=== PATIENT | male | born 1970 | race Caucasian/White ===

== ENCOUNTER 2017-12-21 22:21 | Observation (INO) ==
[2017-12-21] MEDS ORDERED: Sodium Chlor 0.9% Inj 500 ML IV.SIG ONE (22:33)
--- NOTE | 2017-12-21 22:54 | XR ---
EXAM DATE: 12/21/2017 10:49 PM EST AGE/SEX: 47 years / Male INDICATIONS: Syncopal episode today. CLINICAL DATA: This is the patient's initial encounter. Patient reports that signs and symptoms have been present for 1 day and indicates a pain score of 0/10. MEDICAL/SURGICAL HISTORY: None. None. COMPARISON: [facility], CHEST SINGLE AP, 12/04/2014. . FINDINGS: A single AP view of the chest demonstrates the lungs to be symmetrically aerated without evidence of mass, infiltrate or effusion. The cardiomediastinal contours are unremarkable. Osseous structures a re intact. CONCLUSION: No acute cardiopulmonary disease demonstrated. Electronically signed by: Eleno Romo MD 12/21/2017 10:52 PM EST
--- NOTE | 2017-12-21 22:55 | ED ---
HPI General Chief complaint: Syncope Stated complaint: poss syncope/evac Time Seen by Provider: 12/21/17 22:31 Source: patient Mode of arrival: EMS Limitations: no limitations History of Present Illness HPI narrative: The patient is a 47 year old male who presents to the [facility] emergency department with a history of syncope prior to arrival. The patient reports that he was pushing his granddaughter at the local fair when he began to have lightheaded sensation, a sensation of his heart racing, diaphoresis, nausea, and shortness of breath. He denies having any chest pain or chest pressure. The patient reports that he collapsed to the ground, however he did not completely lose consciousness. The patient was brought in by ambulance services. They report that fire rescue stated that his blood pressure was low, however they do not know what the blood pressure was. The patient had IV access obtained prior to arrival and was given 1 L of normal saline. The patient's blood pressure on arrival was 138 systolic. The patient' s blood sugar was reportedly 175. The patient denies having any medical problems except for acid reflux and obesity. He reports that he actually recently had a stress test done in October 2017 that was reportedly unremarkable. He reports that he last ate a meal at approximately 4 PM. He reports that he has been drinking fluids. He denies having any vomiting or diarrhea. On review of systems otherwise, the patient denies having any known recent fevers, cough, congestion, neck pain, abdominal pain, urinary symptoms, or other neurologic symptoms. The patient reports that all throughout the day today he did experience generalized weakness. He reports that he last moved his bowels earlier today. He denies having any blood in his stool or black or tarry stools. Related Data Home Medications Medication Instructions Recorded Confirmed omeprazole 20 mg PO DAILY 12/22/17 12/22/17 Allergies Allergy/AdvReac Type Severity Reaction Status Date / Time No Known Allergies Allergy Uncoded 12/04/14 18:48 Review of Systems ROS: all other systems reviewed are negative [facility] Medical History Medical History GERD (gastroesophageal reflux disease) (Acute) History of varicose veins (Acute) Social History Social History Second Hand Smoke Exposure: No Smoking Status: Never smoker How Often Do You Have a Drink Containing Alcohol: Never Exam Const General: cooperative, well developed, diaphoretic and ill appearing Nutritional Appearance: obese Orientation: alert, awake and oriented x3 HENMT Head: normocephalic and atraumatic Nose: no nasal discharge and no epistaxis Mouth: moist mucous membranes Eyes Sclera: normal sclerae Pupils: PERRL Neck Neck: trachea midline and no JVD Resp Effort & Inspection: no use of accessory muscles Auscultation: clear to auscultation bilaterally Cardio Rate: regular rate Rhythm: regular rhythm Heart Sounds: no murmurs GI Inspection: non-distended Palpation: soft, no hepatosplenomegaly and nontender Back/Spine/Pelvis Back: no CVA tenderness Skin General: other (diaphoretic on arrival) Neuro General: alert, awake and oriented x3 Cranial Nerves: CN's II-XI intact bilaterally Speech: speech normal Motor: strength 5/5 throughout, no movement abnormalities noted and tremor ( Mildly tremulous in bilateral upper extremities.) Sensory Exam: no sensory deficits noted Extrem General: normal to inspection (2+ pulses in all 4 extremities.), no calf tenderness, no clubbing, no cyanosis and edema (Trace pedal edema.) Laterality: bilaterally Psych Mood: congruent mood Affect: normal affect Judgment: judgment good Course Reevaluation(s) Reevaluation #1: The patient on reevaluation is resting comfortably. Patient is no longer tremulous and is no longer diaphoretic. Consultations Consultation #1: The patient's case including history, pertinent physical examination findings, and laboratory studies were discussed with Dr. Wills. It was [facility] Initial Documented Vital Signs Temperature 98.4 F 12/21/17 22:28 Pulse Rate 86 12/21/17 22:28 Respiratory Rate 18 12/21/17 22:28 Blood Pressure 142/65 H 12/21/17 22:28 Pulse Oximetry 98 12/21/17 22:28 Last Documented Vital Signs Temperature 98.4 F 12/21/17 22:28 Pulse Rate 86 12/21/17 22:28 Respiratory Rate 18 12/21/17 22:28 Blood Pressure 142/65 H 12/21/17 22:28 Pulse Oximetry 98 12/21/17 22:28 Medical Decision Making MDM Narrative Medical decision making narrative: During the course of the patient's emergency department visit, the patient's history, examination, and differential diagnosis were reviewed with the patient. The patient was placed on a rn cardiac with oximetry and frequent blood pressure monitoring. The patient had IV access obtained and blood work sent for analysis. A diagnostic evaluation was started regarding the patient's syncope. The patient was initially provided normal saline a 500 mL bolus x1. Diagnostic testing is remarkable for a white count of 12.4, hemoglobin 13.7, platelets 203 with a neutrophil percent of 79.2. PT 11, PTT 24.4, d-dimer elevated at 1.85, CTA to rule out PE was ordered. CMP is remarkable for chloride of 110, anion gap 4, BUN 19, glucose 107, calcium 8.2, initial set of cardiac enzymes are within normal limits, lipase 52, BNP is 7. Chest x-ray showed no acute abnormality, CT scan of the brain showed no acute abnormality of the chest reveals no evidence of pulmonary embolism. The patient will be admitted to the hospital for syncope. The patient's results were discussed with the patient, including the plan of care. I explained that further testing and/ or monitoring is indicated based on the patient's history, examination, and/ or laboratory findings. Therefore, I recommended admission for additional evaluation. The patient expressed understanding and was agreeable with this plan. The patient was admitted to the hospital in stable condition and sent to a bed under the care of the [facility] service. Medical Screen Exam Complete: Yes Emergency Medical Condition: Yes Differential Diagnosis Differential Diagnosis: Vasovagal syncope, versus orthostasis, versus cardiac arrhythmia, versus acute coronary syndrome, versus dehydration Medical Records Medical records reviewed: Yes I reviewed the patient's medical records. Lab Data Lab results reviewed: Yes I reviewed the patient's lab results. Result diagrams: 12/21/17 22:30 12/21/17 22:30 Lab Results 12/21/17 12/21/17 12/21/17 Range/Units 22:30 22:30 22:30 WBC 12.4 H (4.0-11.0) th/mm3 RBC 4.72 (4.50-5.90) mil/mm3 Hgb 13.7 (13.0-17.0) gm/dL Hct 40.4 (39.0-51.0) % MCV 85.5 (80.0-100.0) fL MCH 29.1 (27.0-34.0) pg MCHC 34.0 (32.0-36.0) % RDW 13.6 (11.6-17.2) % Plt Count 203 (150-450) th/mm3 MPV 9.6 (7.0-11.0) fL Neut % (Auto) 79.2 H (16.0-70.0) % Lymph % (Auto) 13.3 (9.0-44.0) % [place] % (Auto) 5.9 (0.0-8.0) % Eos % (Auto) 0.9 (0.0-4.0) % Baso % (Auto) 0.7 (0.0-2.0) % Neut # (Auto) 9.8 H (1.8-7.7) th/mm3 Lymph # (Auto) 1.6 (1.0-4.8) th/mm3 [place] # (Auto) 0.7 (0.0-0.9) th/mm3 Eos # (Auto) 0.1 (0.0-0.4) th/mm3 Baso # (Auto) 0.1 (0.0-0.2) th/mm3 WBC Differential . Differential Comment Auto diff final PT 11.0 (9.8-11.6) sec INR 1.1 Ratio APTT 24.4 (23.4-31.7) sec D-Dimer Quant (PE/DVT) 1.85 H (0.00-0.50) mg/L FEU Sodium 143 (136-145) meq/L Potassium 3.8 (3.5-5.1) meq/L Chloride 110 H (98-107) meq/L Carbon Dioxide 28.8 (21.0-32.0) meq/L Anion Gap 4 L (5-15) meq/L BUN 19 H (7-18) mg/dL Creatinine 1.17 (0.60-1.30) mg/dL Estimated GFR 67 L (>89) mL/min Random Glucose 107 H (74-106) mg/dL Calcium 8.2 L (8.5-10.1) mg/dL Magnesium 1.8 (1.5-2.5) mg/dL Total Bilirubin 0.4 (0.2-1.0) mg/dL AST 17 (15-37) U/L ALT 30 (12-78) U/L Alkaline Phosphatase 78 (45-117) U/L Total Creatine Kinase 120 (39-308) U/L CK-MB (CK-2) 1.8 (0.5-3.6) ng/mL Troponin I Less than 0.02 L (0.02-0.05) ng/mL B-Natriuretic Peptide (0-100) pg/mL Total Protein 7.5 (6.4-8.2) g/dL Albumin 3.3 L (3.4-5.0) g/dL Lipase 52 L (73-393) U/L 12/21/17 Range/Units 22:30 WBC (4.0-11.0) th/mm3 RBC (4.50-5.90) mil/mm3 Hgb (13.0-17.0) gm/dL Hct (39.0-51.0) % MCV (80.0-100.0) fL MCH (27.0-34.0) pg MCHC (32.0-36.0) % RDW (11.6-17.2) % Plt Count (150-450) th/mm3 MPV (7.0-11.0) fL Neut % (Auto) (16.0-70.0) % Lymph % (Auto) (9.0-44.0) % [place] % (Auto) (0.0-8.0) % Eos % (Auto) (0.0-4.0) % Baso % (Auto) (0.0-2.0) % Neut # (Auto) (1.8-7.7) th/mm3 Lymph # (Auto) (1.0-4.8) th/mm3 [place] # (Auto) (0.0-0.9) th/mm3 Eos # (Auto) (0.0-0.4) th/mm3 Baso # (Auto) (0.0-0.2) th/mm3 WBC Differential Differential Comment PT (9.8-11.6) sec INR Ratio APTT (23.4-31.7) sec D-Dimer Quant (PE/DVT) (0.00-0.50) mg/L FEU Sodium (136-145) meq/L Potassium (3.5-5.1) meq/L Chloride (98-107) meq/L Carbon Dioxide (21.0-32.0) meq/L Anion Gap (5-15) meq/L BUN (7-18) mg/dL Creatinine (0.60-1.30) mg/dL Estimated GFR (>89) mL/min Random Glucose (74-106) mg/dL Calcium (8.5-10.1) mg/dL Magnesium (1.5-2.5) mg/dL Total Bilirubin (0.2-1.0) mg/dL AST (15-37) U/L ALT (12-78) U/L Alkaline Phosphatase (45-117) U/L Total Creatine Kinase (39-308) U/L CK-MB (CK-2) (0.5-3.6) ng/mL Troponin I (0.02-0.05) ng/mL B-Natriuretic Peptide 7 (0-100) pg/mL Total Protein (6.4-8.2) g/dL Albumin (3.4-5.0) g/dL Lipase (73-393) U/L Imaging Data Radiologist's impression: Chest X-Ray 12/21/17 22:33 CONCLUSION: No acute cardiopulmonary disease demonstrated. Head CT 12/22/17 00:00 CONCLUSION: Negative CT Head non contrast. . Chest CTA 12/22/17 00:07 CONCLUSION: This study is negative for pulmonary embolism. ECG Data Attestation: I personally reviewed and interpreted this ECG as follows: Interpretation: The patient had a EKG done on arrival. The patient's EKG shows a sinus rhythm heart rate of 90 QRS duration is 90 ms, QTC is [address] segment elevation. T waves are inverted in V1. Discharge Plan Discharge Disposition Patient Disposition: 30 Still Patient Discharge Details Diagnosis: Syncope Physicians Team ED Provider: Darling Henderson Primary Care Provider: Shanda Ribera Attending Provider: Ramakrishna Faustin Status ED Status: Admitted Observation Patient
[2017-12-21 23:04] LABS: Baso # (Auto) 0.1 th/mm3 (0.0-0.2); Baso % (Auto) 0.7 % (0.0-2.0); Eos # (Auto) 0.1 th/mm3 (0.0-0.4); Eos % (Auto) 0.9 % (0.0-4.0); Hematocrit 40.4 % (39.0-51.0); Hemoglobin 13.7 gm/dL (13.0-17.0); Lymph # (Auto) 1.6 th/mm3 (1.0-4.8); Lymph % (Auto) 13.3 % (9.0-44.0); Mean Corpuscular Hemoglobin 29.1 pg (27.0-34.0); Mean Corpuscular Volume 85.5 fL (80.0-100.0); Mean Platelet Volume 9.6 fL (7.0-11.0); Mono # (Auto) 0.7 th/mm3 (0.0-0.9); Mono % (Auto) 5.9 % (0.0-8.0); Neut # (Auto) 9.8 th/mm3 (1.8-7.7); Neut % (Auto) 79.2 % (16.0-70.0); Platelet Count 203 th/mm3 (150-450); Red Blood Count 4.72 mil/mm3 (4.50-5.90); Red Cell Distribution Width 13.6 % (11.6-17.2); White Blood Count 12.4 th/mm3 (4.0-11.0)
[2017-12-21 23:21] LABS: Alanine Aminotransferase 30 U/L (12-78); Albumin 3.3 g/dL (3.4-5.0); Anion Gap 4 meq/L (5-15); Aspartate Aminotransferase 17 U/L (15-37); Blood Urea Nitrogen 19 mg/dL (7-18); Calcium 8.2 mg/dL (8.5-10.1); Carbon Dioxide 28.8 meq/L (21.0-32.0); Chloride 110 meq/L (98-107); Glomerular Filtration Rate 67 mL/min (>89); Glucose,Random 107 mg/dL (74-106); Lipase 52 U/L (73-393); Magnesium 1.8 mg/dL (1.5-2.5); Potassium 3.8 meq/L (3.5-5.1); Sodium 143 meq/L (136-145)
[2017-12-21 23:26] LABS: Alkaline Phosphatase 78 U/L (45-117); Creatine Kinase 120 U/L (39-308); Total Protein 7.5 g/dL (6.4-8.2)
[2017-12-21 23:30] LABS: Activated Partial Thrombo Time 24.4 sec (23.4-31.7); INR 1.1 Ratio
[2017-12-21 23:37] LABS: Creatine Kinase MB 1.8 ng/mL (0.5-3.6)
[2017-12-21 23:50] LABS: D-Dimer 1.85 mg/L FEU (0.00-0.50)
--- NOTE | 2017-12-22 01:59 | CT ---
EXAM DATE: 12/22/2017 1:33 AM EST AGE/SEX: 47 years / Male INDICATIONS: Shortness of breath, syncopal episode. CLINICAL DATA: This is the patient's initial encounter. Patient reports that signs and symptoms have been present for 1 day and indicates a pain score of 0/10. MEDICAL/SURGICAL HISTORY: Gastroesophageal reflux disease. None. RADIATION DOSE: 37.13 CTDI (mGy) ; Patient body habitus COMPARISON: . TECHNIQUE: Volumetric scanning was performed using a multi-row detector CT scanner during bolus infu nathaniel of 95 ml Omnipaque 350 (iohexol) nonionic water-soluble contrast as a single exam dose. The srinivasa a was post processed with a variety of visualization algorithms including full volume maximum intensi ty projection and sliding thin slab reformation. Using automated exposure control and adjustment of the mA and/or kV according to patient size, radiation dose was kept as low as reasonably achievable t o obtain optimal diagnostic quality images. DICOM format image data is available electronically for review and comparison. FINDINGS: Pulmonary Arteries: No filling defects are seen in the pulmonary arteries out to the subsegmental ve ssels. The left and right pulmonary arteries are normal in diameter. Lung: No infiltrates seen. Effusion: None. Mediastinum: No evidence of mediastinal or hilar adenopathy. Other: The axilla is unremarkable. CONCLUSION: This study is negative for pulmonary embolism. Electronically signed by: Eleno Wilks MD 12/22/2017 1:58 AM EST
--- NOTE | 2017-12-22 03:35 | P.HPIM ---
History of Present Illness Service: [facility] Primary Care Physician: Shanda Ribera Chief Complaint: syncope History of Present Illness: 47 y/o male with a history of gerd presented to the ed for evaluation of syncope. Patient states [place] at the [place] pushing his grand daughter in the stroller with he become dizzy and had heart palpitations and then fell to the ground. He does not know if he had any LOC. He denies hitting his head. He states he has been at the fair volunteering and possibly has not been drinking a lot of fluids. He denies any chest pain, sob, fever, chills, cough, or headaches. He had a stress test 2 months ago that was normal. 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 Review of Systems ROS: all other systems reviewed are negative [facility] Medical History Medical History GERD (gastroesophageal reflux disease) (Acute) History of varicose veins (Acute) Family History Family History Father Heart disease Mother Heart disease Social History Social History Second Hand Smoke Exposure: No Smoking Status: Never smoker How Often Do You Have a Drink Containing Alcohol: Never Immunization History Tetanus Immunization: >5 Years Medications and Allergies Allergies Allergy/AdvReac Type Severity Reaction Status Date / Time No Known Allergies Allergy Uncoded 12/04/14 18:48 Active Medications: Active Medications Sodium Chloride (Ns Inj) 1,000 mls @ 100 mls/hr IV.CONT .Q10H YAIR Physical Exam Vital signs: Last Vital Signs Temp 98.4 F 12/21/17 22:28 Pulse 86 12/21/17 22:28 Resp 18 12/21/17 22:28 BP 142/65 H 12/21/17 22:28 Pulse Ox 98 12/21/17 22:28 Intake & Output 12/19/17 12/20/17 12/21/17 12/22/17 06:59 06:59 06:59 06:59 Intake Total 500 / 500 Balance 500 / 500 Weight 181.437 kg Narrative: GENERAL: Well nourished obese male in no acute distress SKIN: Warm and dry. HEAD: Atraumatic. Normocephalic. EYES: Pupils equal and round. No scleral icterus. No injection or drainage. ENT: No nasal bleeding or discharge. Mucous membranes pink and moist. NECK: Trachea midline. No JVD. CARDIOVASCULAR: Regular rate and rhythm. RESPIRATORY: No accessory muscle use. Clear to auscultation. Breath sounds equal bilaterally. GASTROINTESTINAL: Abdomen soft, non-tender, nondistended. Hepatic and splenic margins not palpable. MUSCULOSKELETAL: Extremities without clubbing, cyanosis, or edema. No obvious deformities. NEUROLOGICAL: Awake and alert. No obvious cranial nerve deficits. Motor grossly within normal limits. Five out of 5 muscle strength in the arms and legs. Normal speech. Assessment and Plan Plan 47 y/o male with a history of gerd presented to the ed for evaluation of syncope. Syncope, likely due to dehydration EKG reviewed SR, no st changes CTA negative for PE BUN 19, GFR 67 -IVF -Carotid US and 2D echo ordered -Holter monitor ordered -Head CT ordered Gerd, chronic -Resume home medications DVT prophylaxis: SCDs
[2017-12-22] MEDS: Sod Chloride 0.9% Inj 1,000 ML IV.CONT SCH ×2 (05:26→12:31)
--- NOTE | 2017-12-22 05:46 | CT ---
EXAM DATE: 12/22/2017 5:27 AM EST AGE/SEX: 47 years / Male INDICATIONS: Syncope. CLINICAL DATA: This is the patient's initial encounter. Patient reports that signs and symptoms have been present for 1 day and indicates a pain score of 0/10. MEDICAL/SURGICAL HISTORY: None. None. RADIATION DOSE: 38.78 CTDI (mGy) COMPARISON: [facility] [place] [place], CT BRAIN W/O CONTRAST, 12/04/2014. . TECHNIQUE: CT of the head without contrast. Using automated exposure control and adjustment of the mA and/or kV according to patient size, radiation dose was kept as low as reasonably achievable to ob tain optimal diagnostic quality images. DICOM format image data is available electronically for revi ew and comparison. FINDINGS: Cerebrum: The ventricles are normal for age. No evidence of midline shift, mass lesion, hemorrhage or acute infarction. No extraaxial fluid collections are seen. Posterior Fossa: The cerebellum and brainstem are intact. The 4th ventricle is midline. The cerebe llopontine angle is unremarkable. Extracranial: The visualized portion of the orbits is intact. Skull: The calvaria is intact. No evidence of skull fracture. CONCLUSION: Negative CT Head non contrast. . Electronically signed by: Eleno Wilks MD 12/22/2017 5:45 AM EST
[2017-12-22 16:39] VITALS: BP 113/58; PULSE 71; RESP 18; TEMP 97.6; O2SAT 94
--- NOTE | 2017-12-22 17:21 | ECHRPT ---
Indication: SYNCOPE CONCLUSIONS The left ventricular systolic function is normal with an estimated ejection fraction in the range of 55-60%. Normal left ventricular size. Moderate concentric left ventricular hypertrophy. No regional wall motion abnormalities are present. BP: / HR: Rhythm: Sinus MEASUREMENTS (Male / Female) Normal Values Technical Quality:Very technically difficult study 2D ECHO LV Diastolic Diameter PLAX 4.9 cm 4.2 - 5.9 / 3.9 - 5.3 cm LV Systolic Diameter PLAX 3.7 cm IVS Diastolic Thickness 1.6 cm 0.6 - 1.0 / 0.6 - 0.9 cm LVPW Diastolic Thickness 1.6 cm 0.6 - 1.0 / 0.6 - 0.9 cm LV Relative Wall Thickness 0.6 LVOT Diameter 1.9 cm M-MODE Aortic Root Diameter MM 2.6 cm LA Systolic Diameter MM 4.0 cm LA Ao Ratio MM 1.5 AV Cusp Separation MM 2.3 cm DOPPLER AV Peak Velocity 147.0 cm/s AV Peak Gradient 8.6 mmHg LVOT Peak Velocity 116.0 cm/s LVOT Peak Gradient 5.4 mmHg AV Area Cont Eq pk 2.2 cm MV Area PHT 4.9 cm Mitral E Point Velocity 101.0 cm/s Mitral A Point Velocity 86.9 cm/s Mitral E to A Ratio 1.2 LV E' Lateral Velocity 10.8 cm/s Mitral E to LV E' Lateral Ratio 9.4 LV E' Septal Velocity 9.8 cm/s Mitral E to LV E' Septal Ratio 10.3 PV Peak Velocity 149.0 cm/s PV Peak Gradient 8.9 mmHg FINDINGS LEFT VENTRICLE The left ventricular systolic function is normal with an estimated ejection fraction in the range of 55-60%. Normal left ventricular size. Moderate concentric left ventricular hypertrophy. No regional wall motion abnormalities are present. RIGHT VENTRICLE Normal right ventricular size and systolic function. LEFT ATRIUM The left atrial size is normal. RIGHT ATRIUM The right atrial size is normal. ATRIAL SEPTUM Normal atrial septal thickness without atrial level shunting by limited color doppler interrogation. AORTA The aortic root and proximal ascending aorta are normal in size on limited imaging. MITRAL VALVE Structurally normal mitral valve. No mitral valve stenosis or regurgitation. AORTIC VALVE Trileaflet aortic valve. No aortic valve stenosis or regurgitation. TRICUSPID VALVE Structurally normal tricuspid valve. No tricuspid valve stenosis or regurgitation. PULMONARY VALVE The pulmonary valve is not well visualized. VESSELS The inferior vena cava is normal in size. PERICARDIUM No pericardial effusion. Petey Mcclure MD, FACC (Electronically Signed) Final Date:22 December 2017 17:20
--- NOTE | 2017-12-22 19:14 | ECG ---
Date Performed: 12/21/2017 Time Performed: 22:25:49 PTAGE: 47 years EKG: Sinus rhythm NORMAL ECG PREVIOUS TRACING : 12/04/2014 20.44 Since the previous tracing, no significant change noted DOCTOR: Grant Millan Interpretating Date/Time 12/22/2017 19:13:05
[2017-12-22] MEDS ORDERED: Pantoprazole Sodium 20 MG DR Tablet PO SCH (21:00)
== END 2017-12-22 18:42 | disposition home or self-care (01) ==
LOC: NEPC 22:21 → NEDA 22:21 → NEPGCP 12-22 11:12
PROVIDERS: ADMIT Family Medicine; ATTEND Family Medicine